=== PATIENT | male | born 1965 | race Two or more races ===

== ENCOUNTER 2018-03-18 21:06 | Emergency (ER) | payer OTHER ==
[~2018-03-18] VITALS: Ht 175.3 cm; Wt 90.7 kg
[2018-03-18 21:24] VITALS: BP 149/82
[2018-03-19] MEDS ORDERED: cefTRIAXone SOD 1,000 MG VL IM ONE
[2018-03-19] MEDS ORDERED: HYDROcodone-ACET 5/325MG TAB PO ONE (00:45)
== END 2018-03-19 00:33 | disposition home or self-care (01) ==
LOC: ER 21:06
DX: L03.211 Cellulitis of face (principal); E11.9 Type 2 diabetes mellitus without complications; E78.5 Hyperlipidemia, unspecified; Z88.0 Allergy status to penicillin
CPT/HCPCS: 82962; 96372; 99283; J0696